=== PATIENT | female | born 1950 | race Caucasian/White ===

== ENCOUNTER 2021-01-30 20:13 | Emergency (ER) | payer BC, MEDICAID ==
[~2021-01-30] VITALS: Ht 157.5 cm; Wt 54.5 kg
[2021-01-30 21:10] LABS: CLARITY,URINE CLEAR (Clear); COLOR,URINE YELLOW (Yellow); GLUCOSE, URINE NEGATIVE (Neg); KETONES,URINE NEGATIVE (Neg); LEUKOCYTE ESTERASE ,URINE NEGATIVE (Neg); NITRITES, URINE NEGATIVE (Neg); OCCULT BLOOD,URINE TRACE-INTACT (Neg); PH,URINE 5.5 (4.8-8.0); PROTEIN,URINE NEGATIVE (Neg); UROBILINOGEN,URINE 0.2 E.U/dL (0.2-1.0)
[2021-01-30 21:15] LABS: UA COLLECTION TYPE CLN CATCH MIDSTREAM
[2021-01-30 21:16] LABS: BACTERIA,URINE FEW /HPF (Neg); RBC,URINE 0-2 /HPF (0-2); SQUAMOUS EPITHELIAL CELL,UR FEW /LPF (FEW); WBC,URINE NONE SEEN /HPF (0-4)
[2021-01-30 21:30] LABS: BASOPHILS # (AUTO) 0.1 X10'3 (0-0.2); BASOPHILS % (AUTO) 0.7 % (0-1); EOSINOPHILS # (AUTO) 0.2 X10'3 (0-0.9); EOSINOPHILS % (AUTO) 2.5 % (0-6); HEMATOCRIT 34.9 % (35.0-45.0); HEMOGLOBIN 11.5 g/dl (12.0-16.0); LYMPHOCYTES # (AUTO) 2.5 X10'3 (1.1-4.8); LYMPHOCYTES % (AUTO) 25.3 % (21-51); MEAN CORPUSCULAR HGB CONC 32.9 g/dL (33.0-36.5); MEAN CORPUSCULAR VOLUME 88.2 FL (78-98); MEAN PLATELET VOLUME 8.8 FL (7.4-10.4); MONOCYTES # (AUTO) 1.1 X10'3 (0-0.9); MONOCYTES % (AUTO) 11.1 % (2-12); NEUTROPHILS # (AUTO) 5.9 X10'3 (1.8-7.7); NEUTROPHILS % (AUTO) 60.4 % (42-75); PLATELET COUNT 333 X10'3 (140-440); RED BLOOD COUNT 3.95 X10'6 (4.20-5.60); RED CELL DISTRIBUTION WIDTH 15.2 % (11.5-14.5); WHITE BLOOD COUNT 9.8 X10'3 (4.5-11.0)
[2021-01-30] MEDS ORDERED: haloperidol lactate 5mg/ml inj IM ONE (21:30)
[2021-01-30] MEDS ORDERED: LORazepam 2 mg/ml vial IM ONE (21:30)
[2021-01-30] MEDS ORDERED: diphenhydrAMINE 50 mg/ml inj IM ONE (21:30)
[2021-01-30 21:37] LABS: URINE AMPHETAMINE SCREEN NEGATIVE (Neg); URINE BARBITUATE SCREEN NEGATIVE (Neg); URINE BENZODIAZEPINES SCREEN NEGATIVE (Neg); URINE CANNABINOID SCREEN POSITIVE (Neg); URINE COCAINE SCREEN NEGATIVE (Neg); URINE METHADONE SCREEN NEGATIVE (Neg); URINE OPIATE SCREEN NEGATIVE (Neg); URINE PHENCYCLIDINE SCREEN NEGATIVE (Neg)
[2021-01-30 21:44] LABS: ALANINE AMINOTRANSFERASE 71 U/L (12-78); ALBUMIN 3.4 G/DL (3.4-5.0); ALBUMIN/GLOBULIN RATIO 0.9 (1.1-1.5); ALKALINE PHOSPHATASE 120 IU/L (46-116); ANION GAP 11 (8-16); ASPARTATE AMINO TRANSFERASE 77 U/L (10-37); BLOOD UREA NITROGEN 16 MG/DL (7-18); BUN/CREATININE RATIO 14.4 (6.6-38.0); CALCIUM 8.8 MG/DL (8.5-10.1); CHLORIDE 107 MMOL/L (99-107); CREATININE 1.11 MG/DL (0.40-0.90); ETHANOL < 0.010 GM/DL (0.0-0.010); GLUCOSE 103 MG/DL (70-104); POTASSIUM 3.7 MMOL/L (3.5-5.1); SODIUM 144 MMOL/L (135-145); TOTAL CARBON DIOXIDE 26.5 MMOL/L (24-32); TOTAL PROTEIN 7.2 G/DL (6.4-8.2); eGFR 48 ML/MIN
[2021-01-30 21:48] LABS: BILIRUBIN,TOTAL 0.1 MG/DL (0.1-1.0)
--- NOTE | 2021-01-30 22:17 | NUR ---
Patient's packet was sent to [facility].
[2021-01-31 05:34] VITALS: BP 152/66
--- NOTE | 2021-01-31 08:46 | NUR ---
pt is meeting with steno typist from [facility]
--- NOTE | 2021-01-31 09:22 | NUR ---
pt is lying in bed, tearful. pt only ate a little breakfast
--- NOTE | 2021-01-31 10:43 | NUR ---
pt is sleeping
--- NOTE | 2021-01-31 11:22 | NUR ---
pt continues to sleep, rr unlabored.
--- NOTE | 2021-01-31 14:58 | NUR ---
Pt getting agitated "what do you expect me to do all day?" Pt deescalated, given crayons and book. She req's an antianxiety pill, Dr. Lyle notified.
[2021-01-31] MEDS ORDERED: LORazepam 1 MG tablet PO PRN (15:10)
--- NOTE | 2021-01-31 16:02 | NUR ---
Pt calmer now, [facility] calls and reports that pt will have a room at [facility]
== END 2021-01-31 16:45 | disposition home or self-care (01) ==
LOC: ER 20:14
DX: F23 Brief psychotic disorder (principal); Z20.822 Contact with and (suspected) exposure to COVID-19; N28.9 Disorder of kidney and ureter, unspecified; F31.9 Bipolar disorder, unspecified; Z91.14 Patient's other noncompliance with medication regimen; D64.9 Anemia, unspecified; F12.90 Cannabis use, unspecified, uncomplicated
CPT/HCPCS: 36415; 80053; 80305; 80320; 81001; 84443; 84484; 85025; 87426; 93005; 96372; 99285; J1200; J1630; J2060

== ENCOUNTER → 2021-05-12 | Emergency (ER) | payer BC, MEDICAID ==
[~2021-05-12] VITALS: Ht 157.5 cm; Wt 49.2 kg
[~2021-05-12] MED LIST: ATOR20TA66 PO; FLUO20CA39 PO; FLUO40CA26 PO; HYDR-3686 PO; NICO-668 BC; OMEG-166 PO; TRAZ-251 PO
[2021-05-12 15:04] VITALS: BP 136/46
== END | disposition left against medical advice (07) ==
LOC: ER 14:54
DX: F41.9 Anxiety disorder, unspecified (principal); Z53.21 Procedure and treatment not carried out due to patient leaving prior to being seen by health care provider

== ENCOUNTER 2021-05-13 09:59 | Emergency (ER) | payer BC, MEDICAID ==
[~2021-05-13] VITALS: Ht 157.5 cm; Wt 51.2 kg
[~2021-05-13 09:59] MED LIST changes: -FLUO20CA39 PO
[2021-05-13 10:14] VITALS: BP 168/55
[2021-05-13] MEDS ORDERED: FLUoxetine 20mg capsule PO SCH (11:03)
[2021-05-13] MEDS ORDERED: FLUO20CA39 PO (11:05)
== END 2021-05-13 12:03 | disposition home or self-care (01) ==
LOC: ER 10:00
DX: F41.0 Panic disorder [episodic paroxysmal anxiety] (principal); F31.9 Bipolar disorder, unspecified; Z76.0 Encounter for issue of repeat prescription; Z79.899 Other long term (current) drug therapy
CPT/HCPCS: 99281; 99283

== ENCOUNTER 2023-01-18 12:27 | Emergency (ER) | payer BC, MEDICAID ==
[~2023-01-18] VITALS: Ht 157.5 cm; Wt 57.0 kg
[2023-01-18 13:17] LABS: BASOPHILS # (AUTO) 0.1 X10'3 (0-0.2); EOSINOPHILS % (AUTO) 0 % (0-6); HEMATOCRIT 41.3 % (35.0-45.0); HEMOGLOBIN 13.6 g/dl (12.0-16.0); LYMPHOCYTES # (AUTO) 0.9 X10'3 (1.1-4.8); LYMPHOCYTES % (AUTO) 12.2 % (21-51); MEAN CORPUSCULAR HGB CONC 32.8 g/dL (33.0-36.5); MEAN CORPUSCULAR VOLUME 85.3 FL (78-98); MEAN PLATELET VOLUME 8.6 FL (7.4-10.4); MONOCYTES % (AUTO) 14.3 % (2-12); NEUTROPHILS # (AUTO) 5.3 X10'3 (1.8-7.7); NEUTROPHILS % (AUTO) 72.5 % (42-75); PLATELET COUNT 281 X10'3 (140-440); RED BLOOD COUNT 4.84 X10'6 (4.20-5.60); RED CELL DISTRIBUTION WIDTH 14.2 % (11.5-14.5); WHITE BLOOD COUNT 7.3 X10'3 (4.5-11.0)
[2023-01-18 13:40] LABS: ALANINE AMINOTRANSFERASE 39 U/L (12-78); ALBUMIN 3.8 G/DL (3.4-5.0); ALKALINE PHOSPHATASE 147 IU/L (46-116); ANION GAP 12 (8-16); ASPARTATE AMINO TRANSFERASE 33 U/L (10-37); BILIRUBIN,TOTAL 0.3 MG/DL (0.1-1.0); BLOOD UREA NITROGEN 23 MG/DL (7-18); BUN/CREATININE RATIO 14.2 (10.0-20.0); CHLORIDE 101 MMOL/L (99-107); CREATININE 1.62 MG/DL (0.40-0.90); GLUCOSE 152 MG/DL (70-104); POTASSIUM 4.1 MMOL/L (3.5-5.1); SODIUM 136 MMOL/L (135-145); TOTAL CARBON DIOXIDE 22.9 MMOL/L (24-32); TOTAL PROTEIN 7.7 G/DL (6.4-8.2); eGFR 31 ML/MIN
[2023-01-18] MEDS ORDERED: normal saline 1000ML IV soln IVB ONE (19:40)
[2023-01-18] MEDS ORDERED: albuterol 2.5 MG/3 ML nebule NEB ONE (19:40)
[2023-01-18] MEDS ORDERED: dexamethasone sod phosphate 10mg/ml inj PO STA (19:40)
[2023-01-18 20:08] LABS: GLUCOSE, URINE NEGATIVE (Neg); KETONES,URINE 15 mg/dl (Neg); LEUKOCYTE ESTERASE ,URINE NEGATIVE (Neg); NITRITES, URINE NEGATIVE (Neg); OCCULT BLOOD,URINE TRACE-INTACT (Neg); PH,URINE 5.5 (4.8-8.0); PROTEIN,URINE TRACE mg/dl (Neg); UROBILINOGEN,URINE 0.2 E.U/dL (0.2-1.0)
[2023-01-18 20:12] LABS: COLOR,URINE DARK YELLOW (Yellow); UA COLLECTION TYPE CLN CATCH MIDSTREAM
[2023-01-18 20:15] LABS: BACTERIA,URINE FEW /HPF (Neg); MUCUS STRANDS FEW /LPF (Neg); RBC,URINE 0-2 /HPF (0-2); SQUAMOUS EPITHELIAL CELL,UR FEW /LPF (FEW)
[2023-01-18 20:16] LABS: CLARITY,URINE SLIGHTLY CLOUDY (Clear)
[2023-01-18] MEDS ORDERED: CEPH-268 PO (20:35)
[2023-01-18] MEDS ORDERED: cephalexin 500mg capsule PO ONE (20:40)
[2023-01-18 20:55] VITALS: BP 122/68
== END 2023-01-18 21:18 | disposition home or self-care (01) ==
LOC: ER 12:28
DX: N30.00 Acute cystitis without hematuria (principal); J40 Bronchitis, not specified as acute or chronic; R42 Dizziness and giddiness; F31.9 Bipolar disorder, unspecified; Z79.899 Other long term (current) drug therapy; Z79.1 Long term (current) use of non-steroidal anti-inflammatories (NSAID)
CPT/HCPCS: 36415; 71045; 80053; 81001; 83880; 84484; 85025; 87088; 93005; 94640; 99285; J1100; J7040; 94760